=== PATIENT | female | born 1970 | race Caucasian/White ===

== ENCOUNTER 2019-08-07 16:52 | Emergency (ER) | payer MEDICARE ==
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
[2019-08-07] MEDS ORDERED: TORAdol 30 mg Injection IM ONE (17:28)
[2019-08-07] MEDS ORDERED: TORAdol 30 mg Injection ONE (17:42)
[2019-08-07 18:22] VITALS: BP 169/96; PULSE 86; O2SAT 98
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
== END 2019-08-07 18:22 | disposition home or self-care (01) ==
LOC: ED 16:52
DX: S13.4XXA Sprain of ligaments of cervical spine, initial encounter (principal); V43.62XA Car passenger injured in collision with other type car in traffic accident, initial encounter
CPT/HCPCS: 72040; 96372; 99284; J1885